=== PATIENT | female | born 1970 | race Two or more races ===

== ENCOUNTER 2017-11-14 12:10 | Emergency (ER) | payer MEDICAID ==
[~2017-11-14] VITALS: Ht 170.2 cm; Wt 79.8 kg
[2017-11-14 12:26] VITALS: Ht 170.2 cm; Wt 79.8 kg
[2017-11-14 13:37] VITALS: BP 130/84
== END 2017-11-14 13:37 | disposition home or self-care (01) ==
LOC: ED 12:10
DX: S02.5XXA Fracture of tooth (traumatic), initial encounter for closed fracture (principal); Z90.710 Acquired absence of both cervix and uterus; X58.XXXA Exposure to other specified factors, initial encounter; Y93.89 Activity, other specified; Y92.89 Other specified places as the place of occurrence of the external cause; Y99.8 Other external cause status
CPT/HCPCS: J1885; Q0162

== ENCOUNTER 2018-12-20 22:17 | Emergency (ER) | payer SELFPAY ==
[~2018-12-20] VITALS: Ht 170.2 cm; Wt 72.6 kg
[2018-12-20 22:33] VITALS: Ht 170.2 cm; Wt 72.6 kg
[2018-12-21 00:22] VITALS: BP 123/84
== END 2018-12-21 00:22 | disposition home or self-care (01) ==
LOC: ED 22:17
DX: S86.911A Strain of unspecified muscle(s) and tendon(s) at lower leg level, right leg, initial encounter (principal); Z90.710 Acquired absence of both cervix and uterus; Z88.1 Allergy status to other antibiotic agents; W18.30XA Fall on same level, unspecified, initial encounter; Y93.89 Activity, other specified; Y92.89 Other specified places as the place of occurrence of the external cause; Y99.8 Other external cause status
CPT/HCPCS: J1885